=== PATIENT | female | born 1965 | race Caucasian/White ===

== ENCOUNTER 2021-03-23 19:25 | Emergency (ER) | payer OTHER ==
[2021-03-23 19:58] LABS: BASOPHIL 0.6 % (0-2); EOSINOPHIL 0.9 % (0-5); HCT 41.3 % (37.0-47.0); HGB 14.1 g/dl (12.5-16.0); LYMPHOCYTE 28.1 % (15-48); MCH 30.3 pg (25.0-31.0); MCHC 34.1 g/dL (32.0-36.0); MCV 88.6 fL (78.0-100.0); MONOCYTE 8.8 % (0-12); NEUTROPHIL 61.4 % (41-80); NRBC 0; PLT 198 K/uL (150-400); RBC 4.66 M/uL (4.20-5.40); RDW 12.7 % (11.5-14.0)
[2021-03-23 20:10] LABS: INR 1.05 (0.9-1.2); PTT 21.8 SECONDS (22.2-34.7)
[2021-03-23 20:16] LABS: ALBUMIN 3.8 g/dL (3.4-5.0); BILIRUBIN - TOTAL 0.2 mg/dL (0.2-1.0); BUN/CREAT RATIO (CALC) 17.4 RATIO; CREATININE 0.86 mg/dL (0.51-0.95); GLOBULIN (CALCULATION) 3.3 g/dL; POTASSIUM 3.8 mmol/L (3.5-5.1); TOTAL PROTEIN 7.1 g/dL (6.4-8.2)
== END 2021-03-24 01:15 | disposition home or self-care (01) ==
LOC: FER 19:25
PROVIDERS: Emergency Medicine Emergency Medical Services
DX: I47.1 Supraventricular tachycardia (principal); I10 Essential (primary) hypertension; Z79.899 Other long term (current) drug therapy
CPT/HCPCS: 36415; 71045; 80053; 83880; 84484; 85025; 85610; 85730; 93005; J7030